=== PATIENT | female | born 1935 | race Caucasian/White ===

== ENCOUNTER → 2016-11-09 | Outpatient (CLI) | payer MEDICARE ==
[~2016-11-09] MED LIST: ATENOLOL100 MG PO; BETIMOL 2.5 ML2.5 M1 OP; CENESTIN0.625 MG PO; CEPHALEXIN500 M1 PO; EYE DROPS; LASIX; LASIX 20MG TABL20 MG PO; LISINOPRIL10 MG PO; LUMIGAN 2.5 ML2.5 M1 OP; TENORMIN100 MG PO; ZESTRIL 10MG10 MG PO
== END ==
LOC: MC.RAD 14:03
DX: Z12.31 Encounter for screening mammogram for malignant neoplasm of breast (principal)